=== PATIENT | female | born 1965 | race Hispanic/Latino ===

== ENCOUNTER 2022-07-26 16:49 | Emergency (ER) | payer OTHER ==
[~2022-07-26] VITALS: Ht 160 cm; Wt 103.9 kg
[2022-07-26] MEDS ORDERED: ONDANSETRON HCL INJ 2MG/ML 2ML 2 MG/ML VIAL IV PRN (17:15)
[2022-07-26] MEDS ORDERED: ONDANSETRON HCL INJ 2MG/ML 2ML 2 MG/ML VIAL ONE (17:31)
[2022-07-26] MEDS ORDERED: MECLIZINE HCL 12.5 MG TAB ONE (17:31)
[2022-07-26] MEDS ORDERED: MECLIZINE HCL 12.5 MG TAB PO ONE (18:00)
[2022-07-26] MEDS ORDERED: LABETALOL HCL 5 MG/ML 20ML VIAL IV STA (18:01)
[2022-07-26] MEDS ORDERED: LABETALOL HCL 20 ML ONE (18:04)
[2022-07-26] MEDS ORDERED: MECLIZINE HCL12.5 MG PO ×2 (18:15→18:30)
[2022-07-26] MEDS ORDERED: ONDANSETRON ODT4 MG PO ×2 (18:15→18:30)
[2022-07-26 18:28] VITALS: BP 176/84
== END 2022-07-26 18:30 | disposition home or self-care (01) ==
LOC: FSED 17:04
DX: R42 Dizziness and giddiness (principal); I16.0 Hypertensive urgency; R51.9 Headache, unspecified; R06.02 Shortness of breath; I10 Essential (primary) hypertension
CPT/HCPCS: 70450; 71046; 80053; 82553; 84484; 85025; 93005; 99284; J2405; J3490; J8597